=== PATIENT | male | born 1970 | race Caucasian/White ===

== ENCOUNTER 2016-09-03 02:56 | Emergency (ER) | payer OTHER ==
[~2016-09-03] VITALS: Ht 175.3 cm; Wt 84.1 kg
[2016-09-03 02:59] VITALS: Ht 175.3 cm; Wt 84.1 kg
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
[2016-09-03 04:03] VITALS: BP 154/78; PULSE 89; RESP 18; TEMP 98.6
--- NOTE | 2016-09-03 04:44 | RADRPT ---
PROCEDURE: XR Knee. CLINICAL INDICATION: Trauma TECHNIQUE: AP, lateral and oblique view of the left knee were obtained. COMPARISON: There are no similar studies submitted for comparison. FINDINGS: There is normal mineralization.There is no acute fracture or dislocation.No destructive lesion is id entified. There is no joint effusion. IMPRESSION: No fracture or dislocation. RPTAT: HIKT .Catracho Brito MD, MD Date Time Electronically viewed and signed by .Catracho Brito MD, MD on 09/03/2016 04:44 .T/
== END 2016-09-03 03:50 | disposition home or self-care (01) ==
LOC: E/R 02:56
DX: S80.02XA Contusion of left knee, initial encounter (principal); R40.2252 Coma scale, best verbal response, oriented, at arrival to emergency department; F17.210 Nicotine dependence, cigarettes, uncomplicated; R40.2142 Coma scale, eyes open, spontaneous, at arrival to emergency department; R40.2362 Coma scale, best motor response, obeys commands, at arrival to emergency department; V03.10XA Pedestrian on foot injured in collision with car, pick-up truck or van in traffic accident, initial encounter
CPT/HCPCS: 73562; Z7502

== ENCOUNTER 2016-09-03 04:39 | Emergency (ER) | payer OTHER ==
[~2016-09-03] VITALS: Ht 175.3 cm; Wt 88.0 kg
[2016-09-03 04:59] VITALS: Ht 175.3 cm; Wt 88.0 kg
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
== END 2016-09-03 05:26 | disposition left against medical advice (07) ==
LOC: E/R 04:39
DX: F32.9 Major depressive disorder, single episode, unspecified (principal); F17.210 Nicotine dependence, cigarettes, uncomplicated
CPT/HCPCS: 99284

== ENCOUNTER 2016-10-14 18:14 | Emergency (ER) | payer OTHER ==
[~2016-10-14] VITALS: Ht 172.7 cm; Wt 75.0 kg
[2016-10-14 18:23] VITALS: Ht 172.7 cm; Wt 75.0 kg
[2016-10-14 18:41] LABS: ADD SCAN DIFF NO
[2016-10-14 18:45] LABS: BASOPHIL # 0.1 10^3/ul (0.0-0.1); BASOPHILS % 1.1 % (0.0-2.0); EOSINOPHILS # 0.3 10^3/ul (0.0-0.5); EOSINOPHILS % 4.5 % (0.0-7.0); HEMATOCRIT 45.7 % (42.0-52.0); MEAN CORPUSCULAR HEMOGLOBIN 34.6 pg (29.0-33.0); MEAN CORPUSCULAR VOLUME 98.7 fl (82.0-101.0); MEAN PLATELET VOLUME 8.4 fl (7.4-10.4); MONOCYTE # 0.6 10^3/ul (0.3-0.9); MONOCYTES % 8.9 % (0.0-11.0); NEUTROPHILS % 57.2 % (39.0-77.0); PLATELET COUNT 229 10^3/UL (140-415); RED BLOOD COUNT 4.63 10^6/ul (4.70-6.10); WHITE BLOOD COUNT 7.1 10^3/ul (4.8-10.8)
[2016-10-14 19:01] LABS: INR 0.91; PROTIME 12.2 Sec (12.2-14.2)
[2016-10-14 19:02] LABS: PARTIAL THROMBOPLASTIN TIME 26.9 Sec (25.0-35.0)
[2016-10-14 19:04] LABS: ACETAMINOPHEN < 10.0 ug/ml (10.0-30.0); ALANINE AMINOTRANSFERASE 47 IU/L (13-69); ALBUMIN 4.9 g/dl (3.3-4.9); ALBUMIN/GLOBULIN RATIO 1.75; ALKALINE PHOSPHATASE 129 IU/L (42-121); ANION GAP 22 (8-16); ASPARTATE AMINO TRANSFERASE 46 IU/L (15-46); BILIRUBIN,INDIRECT 0.1 mg/dl (0-1.1); BILIRUBIN,TOTAL 0.1 mg/dl (0.2-1.3); BLOOD UREA NITROGEN 9 mg/dl (7-20); CALCIUM 8.8 mg/dl (8.4-10.2); CARBON DIOXIDE 31 mmol/L (21-31); CHLORIDE 98 mmol/L (97-110); CREATININE 0.67 mg/dl (0.61-1.24); GLUCOSE 125 mg/dl (70-220); POTASSIUM 3.6 mmol/L (3.5-5.1); SALICYLATE < 1.0 mg/dl (5.0-30.0); SODIUM 147 mmol/L (135-144); TOTAL PROTEIN 7.7 g/dl (6.1-8.1)
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
[2016-10-14 19:23] LABS: ADD UMIC YES; UR ASCORBIC ACID NEGATIVE (NEGATIVE); UR BACTERIA FEW /HPF (NONE SEEN); UR BILIRUBIN (Dip) NEGATIVE (NEGATIVE); UR BLOOD (Dip) 1+ mg/dL (NEGATIVE); UR CLARITY CLEAR (CLEAR); UR COLOR YELLOW (YELLOW); UR GLUCOSE (Dip) NEGATIVE (NEGATIVE); UR KETONES (Dip) NEGATIVE (NEGATIVE); UR LEUKOCYTE ESTERASE (Dip) NEGATIVE Leu/ul (NEGATIVE); UR NITRITE (Dip) NEGATIVE (NEGATIVE); UR RBC 7 /HPF (0-5); UR SPECIFIC GRAVITY (Dip) 1.012 (1.003-1.030); UR TOTAL PROTEIN (Dip) NEGATIVE (NEGATIVE); UR UROBILINOGEN (Dip) NEGATIVE (NEGATIVE)
[2016-10-14 19:46] LABS: BARBITURATES Positive (NEGATIVE); CANNABINOIDS Negative (NEGATIVE)
[2016-10-14 19:47] LABS: BENZODIAZEPINES Negative (NEGATIVE); COCAINE Negative (NEGATIVE); OPIATES Negative (NEGATIVE)
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
[2016-10-15] MEDS ORDERED: PHENYTOIN 100 MG CAP PO ONE (05:00)
[2016-10-15 06:54] VITALS: BP 119/79; PULSE 87; RESP 20; TEMP 98.3
[2016-10-15] MEDS ORDERED: ONDANSETRON (ODT) 4 MG TAB ODT STA (08:32)
[2016-10-15] MEDS ORDERED: NICOTINE (21 MG/24 HR) PATCH TRANSDERM ONE (09:00)
[2016-10-15] MEDS ORDERED: HYDROCODONE/APAP (5/325) TAB PO ONE (12:00)
== END 2016-10-15 14:26 ==
LOC: E/R 18:14
DX: R45.851 Suicidal ideations (principal); R40.2142 Coma scale, eyes open, spontaneous, at arrival to emergency department; R40.2252 Coma scale, best verbal response, oriented, at arrival to emergency department; R40.2362 Coma scale, best motor response, obeys commands, at arrival to emergency department; Z87.891 Personal history of nicotine dependence
CPT/HCPCS: 80053; 80162; 80306; 80307; 81001; 85025; 85610; 85730; Z7502; Z7610; 99285

== ENCOUNTER 2017-01-19 06:59 | Emergency (ER) | payer OTHER ==
[~2017-01-19] VITALS: Ht 172.7 cm; Wt 72.0 kg
[2017-01-19 07:00] VITALS: Ht 172.7 cm; Wt 72.0 kg
--- NOTE | 2017-01-19 08:02 | RADRPT ---
PROCEDURE: XR right shoulder. CLINICAL INDICATION: Pain TECHNIQUE: AP and scapular Y views of the right shoulder were performed. COMPARISON: None FINDINGS: Comminuted fracture of the humeral head and neck. The humeral head is inferiorly and anteriorly disl ocated from the glenoid. Normal alignment of the acromioclavicular joint. Multiple old healed right rib fractures. IMPRESSION: Comminuted humeral head/neck fracture with anterior inferior dislocation from the glenoid. RPTAT:AAJJ Physician Gagan Date Time Electronically viewed and signed by Ana Sanchez Physician on 01/19/2017 08:02 /
[2017-01-19 08:06] LABS: BASOPHIL # 0.1 10^3/ul (0.0-0.1); BASOPHILS % 1.2 % (0.0-2.0); EOSINOPHILS # 0.2 10^3/ul (0.0-0.5); EOSINOPHILS % 2.9 % (0.0-7.0); HEMATOCRIT 49.3 % (42.0-52.0); HEMOGLOBIN 16.4 g/dl (14.0-18.0); LYMPHOCYTES # 1.5 10^3/ul (0.8-2.9); LYMPHOCYTES % 19.9 % (15.0-51.0); MEAN CORPUSCULAR HEMOGLOBIN 33.3 pg (29.0-33.0); MEAN CORPUSCULAR HGB CONC 33.3 g/dl (32.0-37.0); MEAN CORPUSCULAR VOLUME 100.2 fl (82.0-101.0); MONOCYTE # 0.8 10^3/ul (0.3-0.9); NEUTROPHILS % 65.6 % (39.0-77.0); PLATELET COUNT 222 10^3/UL (140-415); RED BLOOD COUNT 4.92 10^6/ul (4.70-6.10); RED CELL DISTRIBUTION WIDTH 13.5 % (11.5-14.5); WHITE BLOOD COUNT 7.6 10^3/ul (4.8-10.8)
--- NOTE | 2017-01-19 08:12 | PSY ---
Date/Time of Note Date/Time of Note DATE: 01/19/17 TIME: 08:08 Psychiatric Subjective Eval Consent Pt consented to telemedicine: Yes Subjective Evaluation Patient location: emergency Chief Complaint: Complains of suicidal ideation today History of present illness 46 yo homeless male with hx meth and alcohol use self presenting to ED c/o active Si without a plan and depression. He said he is tired of being homeless and will kill himself if discharged. He reprots deprssed mood, feeling hopeless , helpless, sad, despondent. No AH or VH, no paranoia. no HI. Pt is not in treatment. Past psychiatric history prior inpt x4 for Si no attempts Hospitalization: yes Family History denies Medical history Problems Medical Problems: (1) Contusion of left knee Status: Acute (2) Depression Status: Acute (3) Suicidal ideation Status: Acute Allergies: Coded Allergies: No Known Allergy (Unverified , 09/03/16) Substance Abuse Substance abuse history: Yes Prior substance abuse treatmen: Yes Social History Marital status: single Level of education: GED DPA/Conservatorship: No Occupation/Intermediate: unemployed, homeless, lives of [employer] and Psychiatric Objective Eval Review of Systems: Review of Systems: Not Applicable Physical Examination: Physical Examination: Not Applicable Sleep: Insomnia Appetite: Decreased Energy: Decreased Interest: Decreased Mental Status Examination: Appearance: Disheveled Psychomotor Activity: Normal Behavior: Cooperative Speech: Clear AFFECT: Guarded Mood: Depressed, Irritable Though Process: Linear Thought Content: Normal Suicidal: Yes Homicidal: No On 72 hour hold: No Orientation: x4 Cognition: Alert Insight: Impared Judgement: Impared Laboratory Results Laboratory Tests Test 01/19/17 07:50 White Blood Count 7.610^3/ul Red Blood Count 4.9210^6/ul Hemoglobin 16.4g/dl Hematocrit 49.3% Mean Corpuscular Volume 100.2fl Mean Corpuscular Hemoglobin 33.3pg Mean Corpuscular Hemoglobin Concent 33.3g/dl Red Cell Distribution Width 13.5% Platelet Count 79773^3/UL Mean Platelet Volume 9.0fl Neutrophils % 65.6% Lymphocytes % 19.9% Monocytes % 10.0% Eosinophils % 2.9% Basophils % 1.2% Nucleated Red Blood Cells % 0.0/100WBC Neutrophils # 5.010^3/ul Lymphocytes # 1.510^3/ul Monocytes # 0.810^3/ul Eosinophils # 0.210^3/ul Basophils # 0.110^3/ul Nucleated Red Blood Cells # 0.010^3/ul Assessment and Plan Assessment/Diagnosis [place] I: 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 Stimulant use disorder. Alcohol use disorder [place] II: defered [place] III: nad [place] IV: severe [place] V: GAF 30 Recommendation/Plan Medication Management please monitor for alcohol withdrawals Psychotherapy defer to inpt Follow-up/Disposition 5150 for dts; transfer to inpt psych 5150 Recommendation: ESTEFANI Corbett MD Jan 19, 2017 08:12
[2017-01-19 08:36] LABS: ALANINE AMINOTRANSFERASE 44 IU/L (13-69); ALBUMIN 4.3 g/dl (3.3-4.9); ALBUMIN/GLOBULIN RATIO 1.34; ALKALINE PHOSPHATASE 120 IU/L (42-121); ANION GAP 16 (8-16); ASPARTATE AMINO TRANSFERASE 37 IU/L (15-46); BILIRUBIN,INDIRECT 0.3 mg/dl (0-1.1); BILIRUBIN,TOTAL 0.3 mg/dl (0.2-1.3); BLOOD UREA NITROGEN 9 mg/dl (7-20); CARBON DIOXIDE 26 mmol/L (21-31); CHLORIDE 103 mmol/L (97-110); CREATININE 0.68 mg/dl (0.61-1.24); GLUCOSE 103 mg/dl (70-220); POTASSIUM 3.6 mmol/L (3.5-5.1); SODIUM 141 mmol/L (135-144); TOTAL PROTEIN 7.5 g/dl (6.1-8.1)
[2017-01-19 08:37] LABS: ACETAMINOPHEN < 10.0 ug/ml (10.0-30.0); SALICYLATE < 1.0 mg/dl (5.0-30.0)
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
[2017-01-19 10:33] LABS: ADD UMIC YES; UR ASCORBIC ACID NEGATIVE (NEGATIVE); UR BILIRUBIN (Dip) NEGATIVE (NEGATIVE); UR BLOOD (Dip) 1+ mg/dL (NEGATIVE); UR CLARITY CLEAR (CLEAR); UR COLOR YELLOW (YELLOW); UR GLUCOSE (Dip) NEGATIVE (NEGATIVE); UR KETONES (Dip) NEGATIVE (NEGATIVE); UR LEUKOCYTE ESTERASE (Dip) TRACE Leu/ul (NEGATIVE); UR MUCUS FEW /HPF (NONE SEEN); UR NITRITE (Dip) NEGATIVE (NEGATIVE); UR RBC 27 /HPF (0-5); UR SPECIFIC GRAVITY (Dip) 1.021 (1.003-1.030); UR TOTAL PROTEIN (Dip) NEGATIVE (NEGATIVE); UR UROBILINOGEN (Dip) 1+ mg/dL (NEGATIVE)
[2017-01-19 10:55] LABS: CANNABINOIDS Positive (NEGATIVE)
[2017-01-19 10:56] LABS: BARBITURATES Negative (NEGATIVE); BENZODIAZEPINES Negative (NEGATIVE); COCAINE Negative (NEGATIVE); OPIATES Negative (NEGATIVE)
[2017-01-19] MEDS ORDERED: NICOTINE (21 MG/24 HR) PATCH TRANSDERM ONE ×2 (14:30→15:00)
[2017-01-19 14:36] VITALS: BP 141/97; PULSE 96; RESP 20; TEMP 98.7
== END 2017-01-19 14:40 ==
LOC: E/R 06:59
DX: F32.9 Major depressive disorder, single episode, unspecified (principal); R45.851 Suicidal ideations; F17.210 Nicotine dependence, cigarettes, uncomplicated
CPT/HCPCS: 73030; 80053; 80306; 80307; 81001; 85025; Z7502; Z7610

== ENCOUNTER 2017-01-24 08:52 | Emergency (ER) | payer OTHER ==
[~2017-01-24] VITALS: Ht 172.7 cm; Wt 84.0 kg
[2017-01-24 09:21] VITALS: Ht 172.7 cm; Wt 84.0 kg
[2017-01-24 10:01] LABS: BASOPHIL # 0.1 10^3/ul (0.0-0.1); BASOPHILS % 0.8 % (0.0-2.0); EOSINOPHILS # 0.3 10^3/ul (0.0-0.5); EOSINOPHILS % 2.6 % (0.0-7.0); HEMATOCRIT 52.1 % (42.0-52.0); HEMOGLOBIN 17.2 g/dl (14.0-18.0); LYMPHOCYTES # 2.3 10^3/ul (0.8-2.9); MEAN CORPUSCULAR HEMOGLOBIN 33.8 pg (29.0-33.0); MEAN CORPUSCULAR VOLUME 102.4 fl (82.0-101.0); MONOCYTE # 0.7 10^3/ul (0.3-0.9); MONOCYTES % 6.9 % (0.0-11.0); NEUTROPHIL # 6.6 10^3/ul (1.6-7.5); NEUTROPHILS % 66.4 % (39.0-77.0); PLATELET COUNT 238 10^3/UL (140-415); RED BLOOD COUNT 5.09 10^6/ul (4.70-6.10); RED CELL DISTRIBUTION WIDTH 13.4 % (11.5-14.5); WHITE BLOOD COUNT 9.9 10^3/ul (4.8-10.8)
[2017-01-24 10:01] LABS: ADD UMIC YES; UR ASCORBIC ACID NEGATIVE (NEGATIVE); UR BILIRUBIN (Dip) NEGATIVE (NEGATIVE); UR BLOOD (Dip) 3+ mg/dL (NEGATIVE); UR CLARITY CLEAR (CLEAR); UR COLOR YELLOW (YELLOW); UR GLUCOSE (Dip) NEGATIVE (NEGATIVE); UR KETONES (Dip) NEGATIVE (NEGATIVE); UR LEUKOCYTE ESTERASE (Dip) NEGATIVE Leu/ul (NEGATIVE); UR NITRITE (Dip) NEGATIVE (NEGATIVE); UR RBC 37 /HPF (0-5); UR SPECIFIC GRAVITY (Dip) 1.011 (1.003-1.030); UR TOTAL PROTEIN (Dip) NEGATIVE (NEGATIVE); UR UROBILINOGEN (Dip) NEGATIVE (NEGATIVE)
[2017-01-24 10:23] LABS: BARBITURATES Negative (NEGATIVE); CANNABINOIDS Negative (NEGATIVE)
[2017-01-24 10:24] LABS: ALANINE AMINOTRANSFERASE 59 IU/L (13-69); ALBUMIN 5.1 g/dl (3.3-4.9); ALBUMIN/GLOBULIN RATIO 1.41; ALKALINE PHOSPHATASE 108 IU/L (42-121); ANION GAP 15 (8-16); ASPARTATE AMINO TRANSFERASE 34 IU/L (15-46); BILIRUBIN,INDIRECT 0.3 mg/dl (0-1.1); BILIRUBIN,TOTAL 0.3 mg/dl (0.2-1.3); BLOOD UREA NITROGEN 18 mg/dl (7-20); CALCIUM 9.1 mg/dl (8.4-10.2); CARBON DIOXIDE 32 mmol/L (21-31); CHLORIDE 99 mmol/L (97-110); CREATININE 0.93 mg/dl (0.61-1.24); GLUCOSE 124 mg/dl (70-220); POTASSIUM 4.1 mmol/L (3.5-5.1); SODIUM 142 mmol/L (135-144); TOTAL PROTEIN 8.7 g/dl (6.1-8.1)
[2017-01-24 10:26] LABS: ACETAMINOPHEN < 10.0 ug/ml (10.0-30.0); SALICYLATE < 1.0 mg/dl (5.0-30.0)
[2017-01-24 10:26] LABS: BENZODIAZEPINES Negative (NEGATIVE); COCAINE Negative (NEGATIVE); OPIATES Negative (NEGATIVE)
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
[2017-01-24] MEDS ORDERED: ACETAMINOPHEN 500 MG TAB PO STA (12:55)
[2017-01-24] MEDS ORDERED: LORAZEPAM 1 MG TAB PO ONE (13:00)
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
[2017-01-24 15:00] VITALS: BP 138/83; PULSE 87; RESP 18; TEMP 98.1
[2017-01-24] MEDS ORDERED: CEFTRIAXONE 250 MG INJ IM ONE (16:00)
[2017-01-24] MEDS ORDERED: AZITHROMYCIN 250 MG TAB PO ONE (16:00)
== END 2017-01-24 15:10 | disposition short-term general hospital (02) ==
LOC: E/R 08:52
DX: F32.9 Major depressive disorder, single episode, unspecified (principal); F10.10 Alcohol abuse, uncomplicated; R45.851 Suicidal ideations
CPT/HCPCS: 36415; 80053; 80306; 80307; 81001; 85025; Z7502; Z7610